=== PATIENT | female | born 2000 | race Caucasian/White ===

== ENCOUNTER 2022-01-23 15:23 | Outpatient (CLI) | payer BC | END 2022-01-23 15:24 | disposition home or self-care (01) | LOC: CSHMRI 15:23 | PROVIDERS: ATTEND Orthopaedic Surgery | DX: Z98.890 Other specified postprocedural states (principal) ==

== ENCOUNTER 2022-04-17 15:35 | Emergency (ER) | payer BC ==
[2022-04-17 16:19] LABS: Bilirubin Neg (Negative); Blood, Urine 250 (Negative); Clarity Clear (Clear); Glucose, Urine (Dipstick) Normal (Negative); Ketone, Urine Negative (Negative); Leukocyte Negative (Negative); Nitrite Negative (Negative); Protein, Urine (Dipstick) Negative (Neg-Trace); Urobilinogen Normal mg/dL (Less than 2)
[2022-04-17 16:21] LABS: Pregnancy Test - Urine (BHCG) Negative (Negative)
[2022-04-17 16:22] LABS: #Basophils 0.1 10x3/uL (0.0-0.2); #Eosinphils 0.2 10x3/uL (0.0-0.5); #Monocytes 0.5 10x3/uL (0.0-1.1); #Neutrophils 5.3 10x3/uL (1.5-8.4); %Basophils 0.9 % (0.0-2.0); %Eosinophils 2.3 % (0.0-6.0); %Lymphocytes 33.6 % (18.0-47.0); %Monocytes 4.9 % (0.0-10.0); %Neutrophils 58.1 % (40.0-75.0); Hemoglobin 11.6 g/dL (12.0-15.5); Mean Corpuscular HGB CONC 32.1 g/dL (32.0-36.0); Mean Corpuscular Hemoglobin 25.1 pg (27.0-33.0); Mean Platelet Volume 11.1 fl (7.4-10.4); Platelet Count 292 10x3/uL (150-450); RBC Distribution Width 15.9 % (11.5-14.5); Red Blood Cell (RBC) Count 4.63 10x6/uL (3.90-5.03); White Blood Cell (WBC) Count 9.1 10x3/uL (3.5-10.5)
[2022-04-17 16:22] LABS: Pregu Control Background? CLEAR/WHITE (CLR/WHITE); Pregu Control Bar Appear? YES (CONTROL BAR)
[2022-04-17 16:38] LABS: ALT (SGPT) 15 U/L (8-55); AST (SGOT) 18 U/L (5-34); Albumin 4.2 g/dL (3.5-5.0); Alkaline Phosphatase 59 U/L (40-100); Anion Gap 12 mmol/L (10-20); BUN (Urea Nitrogen) 8 mg/dL (7.0-18.7); Bilirubin, Total 0.3 mg/dL (0.2-1.2); Calc. Creatinine Clearance 0 mL/min (70-130); Carbon Dioxide 23 mmol/L (22-29); Chloride 108 mmol/L (98-107); Estimated GFR 127; Globulin 2.7 g/dL (2.4-3.5); Glucose 90 mg/dL (70-105); Lipase 29 U/L (8-78); Protein, Total 6.9 g/dL (6.0-8.3); Sodium 139 mmol/L (136-145)
[2022-04-17 16:56] LABS: Bacteria/HPF Rare-Few HPF (None Seen); Squamous Epithelial 0-3 HPF (0-3); WBC/HPF 0-3 HPF (0-3)
[2022-04-17] MEDS ORDERED: Ketorolac Tromethamine 30 MG/ML VIAL ONE (17:20)
== END 2022-04-17 20:19 | disposition home or self-care (01) ==
LOC: CSHERS 15:35
DX: N83.201 Unspecified ovarian cyst, right side (principal)
CPT/HCPCS: 36415; 74177; 76856; 80053; 81003; 81015; 81025; 83605; 83690; 85025; 96374; J1885